=== PATIENT | male | born 1940 | race African-American/Black ===

== ENCOUNTER 2016-09-10 13:12 | Emergency (ER) | payer MEDICARE, BC, MEDICAID ==
[~2016-09-10] VITALS: Ht 185.4 cm; Wt 82.0 kg
[2016-09-10 16:17] LABS: CLARITY URINE TURBID (CLEAR); COLOR URINE YELLOW (YELLOW); GLUCOSE URINE NEGATIVE (NEGATIVE); KETONES URINE TRACE (NEGATIVE); LEUKOCYTE ESTERASE URINE 3+ (NEGATIVE); NITRITE URINE POSITIVE (NEGATIVE); OCCULT BLOOD URINE 2+ (NEGATIVE); PH URINE 7.5 (4.5-8.0); PROTEIN URINE 2+ (NEGATIVE); SPECIFIC GRAVITY URINE 1.016 (1.005-1.030)
[2016-09-10] MEDS ORDERED: CEFTRIAXONE SODIUM 1 G/VIAL IM SCH (19:45)
[2016-09-10] MEDS ORDERED: LIDOCAINE HCL 1% 20ML VIAL (Pyxis) INJ INFIL SCH (19:45)
[2016-09-10 20:25] VITALS: BP 105/60
== END 2016-09-10 20:50 | disposition home or self-care (01) ==
LOC: ER 13:42
DX: N39.0 Urinary tract infection, site not specified (principal); I11.0 Hypertensive heart disease with heart failure; I50.9 Heart failure, unspecified
CPT/HCPCS: 51702; 81001; 99284; J0696; J3490; A4315

== ENCOUNTER 2016-10-15 14:29 | Inpatient (IN) | payer MEDICARE, MEDICAID ==
[~2016-10-15] VITALS: Ht 185.4 cm; Wt 78.9 kg
[2016-10-15] MEDS ORDERED: KETOROLAC 60MG/2ML VIAL IM ONE (15:15)
[2016-10-15] MEDS ORDERED: MORPHINE SULFATE 4 MG/ML CPJ (NOT FOR IM USE) IV STA ×2 (17:00)
[2016-10-15] MEDS ORDERED: SODIUM CHLORIDE 0.9% 500 ML IV ONE (17:00)
[2016-10-15] MEDS ORDERED: DEXAMETHASONE 10 MG/ML VIAL IV ONE (17:00)
[2016-10-15] MEDS ORDERED: ONDANSETRON HCL 4MG/2ML VIAL IV STA ×2 (17:00)
[2016-10-15 17:27] LABS: BASOPHILS % 0.4 % (0.0-2.0); EOSINOPHILS % 0.3 % (0.0-5.0); HEMOGLOBIN. 12.2 g/dL (14.0-18.0); LYMPHOCYTES % 10.4 % (20.0-50.0); MEAN CORPUSCULAR HEMOGLOBIN 29.2 pg (28.0-32.0); MEAN PLATELET VOLUME 8.4 fl (7.4-10.4); MONOCYTES % 11.2 % (2.0-8.0); NEUTROPHILS % 77.7 % (40.0-76.0); PLATELET 162 x1000/uL (130-400); RED BLOOD CELL COUNT 4.19 mill/uL (4.7-6.1); RED CELL DISTRIBUTION WIDTH 14.7 % (11.6-14.6)
[2016-10-15 17:32] LABS: INR 1.1; PROTHROMBIN TIME 11.4 sec (9.4-11.6)
[2016-10-15 17:35] LABS: CARBON DIOXIDE 23 mEq/L (21-32); CHLORIDE 109 mEq/L (98-107)
[2016-10-15 17:42] LABS: TROPONIN I 0.15 ng/mL (0.00-0.04)
[2016-10-15 20:01] LABS: CLARITY URINE CLEAR (CLEAR); COLOR URINE DARK YELLOW (YELLOW); GLUCOSE URINE NEGATIVE (NEGATIVE); KETONES URINE TRACE (NEGATIVE); LEUKOCYTE ESTERASE URINE 2+ (NEGATIVE); NITRITE URINE POSITIVE (NEGATIVE); OCCULT BLOOD URINE 3+ (NEGATIVE); PROTEIN URINE 2+ (NEGATIVE); SPECIFIC GRAVITY URINE 1.024 (1.005-1.030)
[2016-10-15] MEDS ORDERED: CEFTRIAXONE 1 G PREMIX 50 ML IV ONE (20:15)
[2016-10-15 21:00] VITALS: BP 151/88
[2016-10-15 21:35] VITALS: BP 157/88
[2016-10-15] MEDS ORDERED: ONDANSETRON HCL 4MG/2ML VIAL IV PRN (23:00)
[2016-10-15] MEDS ORDERED: DEXTROSE 50% WATER 50ML SYRINGE IV PRN (23:00)
[2016-10-15] MEDS: MORPHINE SULFATE 4 MG/ML CPJ (NOT FOR IM USE) IV PRN (23:26)
[2016-10-16] VITALS: BP 147/75
[2016-10-16] MEDS ORDERED: LISI40TA4 PO (00:21)
[2016-10-16] MEDS ORDERED: TRAM50TA3 PO (00:21)
[2016-10-16] MEDS ORDERED: AMLO10TA80 PO (00:21)
[2016-10-16] MEDS ORDERED: METF500C MC (00:21)
[2016-10-16] MEDS ORDERED: GLYB5TAB7 PO (00:22)
[2016-10-16] MEDS ORDERED: METF-516 PO (00:25)
[2016-10-16] MEDS ORDERED: TRAMADOL 50MG TABLET PO PRN (00:30)
[2016-10-16] MEDS ORDERED: NON FORMULARY PATIENT HOME MED EA XX SCH (00:30)
[2016-10-16 04:00] VITALS: BP 127/68
[2016-10-16] MEDS: BLOOD SUGAR DIAGNOSTIC STRIP TEST SCH ×4 (06:34→21:18)
[2016-10-16 06:43] LABS: BASOPHILS % 0.4 % (0.0-2.0); EOSINOPHILS % 1.3 % (0.0-5.0); HEMATOCRIT. 33.3 % (42.0-52.0); HEMOGLOBIN. 11.3 g/dL (14.0-18.0); MEAN CORPUSCULAR HEMOGLOBIN 29.3 pg (28.0-32.0); MEAN CORPUSCULAR VOLUME 86.4 fL (80.0-94.0); MEAN PLATELET VOLUME 8.6 fl (7.4-10.4); NEUTROPHILS % 71.3 % (40.0-76.0); PLATELET 141 x1000/uL (130-400); RED BLOOD CELL COUNT 3.86 mill/uL (4.7-6.1); RED CELL DISTRIBUTION WIDTH 14.7 % (11.6-14.6)
[2016-10-16 07:07] LABS: CARBON DIOXIDE 25 mEq/L (21-32); CHLORIDE 112 mEq/L (98-107)
[2016-10-16 08:00] VITALS: BP 126/67
[2016-10-16] MEDS: GLYBURIDE 5MG TABLET PO SCH (08:23)
[2016-10-16] MEDS: AMLODIPINE 10MG TABLET PO SCH (08:24)
[2016-10-16] MEDS: LISINOPRIL 40MG TABLET PO SCH (08:24)
[2016-10-16] MEDS: METFORMIN HCL 500MG SR TABLET 24HR PO SCH (08:25)
[2016-10-16] MEDS: INSULIN LISPRO 100 UNITS/ML SUBCUT SCH ×4 (08:27→21:00)
[2016-10-16] MEDS: ENOXAPARIN 40MG/0.4ML SYR SUBCUT SCH (08:29)
[2016-10-16] MEDS: MORPHINE SULFATE 4 MG/ML CPJ (NOT FOR IM USE) IV PRN ×4 (08:29→22:36)
[2016-10-16 12:00] VITALS: BP 110/61
[2016-10-16] MEDS ORDERED: DOCUSATE SODIUM 100MG CAPSULE PO PRN (13:15)
[2016-10-16] MEDS ORDERED: ACETAMINOPHEN 325MG TABLET PO PRN (13:15)
[2016-10-16] MEDS ORDERED: IPRATROPIUM/ALBUTEROL 0.5-3(2.5)MG/3ML NEB INH PRN (13:15)
[2016-10-16] MEDS ORDERED: ONDANSETRON HCL 4MG/2ML VIAL IV PRN (13:15)
[2016-10-16] MEDS: OMEPRAZOLE 20MG CAPSULE EXTENDED RELEASE PO SCH (14:49)
[2016-10-16] MEDS: LEVOFLOXACIN 500MG PREMIX 100 ML IV SCH (14:49)
[2016-10-16 16:00] VITALS: BP 117/60
[2016-10-16 20:00] VITALS: BP 128/66
[2016-10-17] MEDS: BLOOD SUGAR DIAGNOSTIC STRIP TEST SCH ×4 (06:03→21:25)
[2016-10-17 07:20] LABS: *AMPHETAMINES SCREEN URINE NEGATIVE (NEGATIVE); *BARBITURATES SCREEN URINE NEGATIVE (NEGATIVE); *BENZODIAZEPINES SCREEN URINE NEGATIVE (NEGATIVE); *COCAINE SCREEN URINE NEGATIVE (NEGATIVE); CANNABINOID URINE SCREEN NEGATIVE (NEGATIVE); METHADONE URINE SCREEN NEGATIVE (NEGATIVE); OPIATES URINE SCREEN PRESUMTIVE POSITIVE (NEGATIVE); PHENCYCLIDINE URINE SCREEN NEGATIVE (NEGATIVE)
[2016-10-17 08:00] VITALS: BP 123/67
[2016-10-17] MEDS: METFORMIN HCL 500MG SR TABLET 24HR PO SCH (08:06)
[2016-10-17] MEDS: OMEPRAZOLE 20MG CAPSULE EXTENDED RELEASE PO SCH (08:06)
[2016-10-17] MEDS: GLYBURIDE 5MG TABLET PO SCH (08:09)
[2016-10-17] MEDS: MORPHINE SULFATE 4 MG/ML CPJ (NOT FOR IM USE) IV PRN (08:09)
[2016-10-17] MEDS: INSULIN LISPRO 100 UNITS/ML SUBCUT SCH ×3 (08:10→21:00)
[2016-10-17 09:35] LABS: BASOPHILS % 0.4 % (0.0-2.0); EOSINOPHILS % 0.5 % (0.0-5.0); HEMATOCRIT. 35.6 % (42.0-52.0); HEMOGLOBIN. 11.9 g/dL (14.0-18.0); LYMPHOCYTES % 12.6 % (20.0-50.0); MEAN CORPUSCULAR HEMOGLOBIN 29.3 pg (28.0-32.0); MEAN CORPUSCULAR VOLUME 87.2 fL (80.0-94.0); MONOCYTES % 12.6 % (2.0-8.0); NEUTROPHILS % 73.9 % (40.0-76.0); PLATELET 134 x1000/uL (130-400); RED BLOOD CELL COUNT 4.08 mill/uL (4.7-6.1); RED CELL DISTRIBUTION WIDTH 15.1 % (11.6-14.6)
[2016-10-17] MEDS: ENOXAPARIN 40MG/0.4ML SYR SUBCUT SCH (09:35)
[2016-10-17] MEDS: LISINOPRIL 40MG TABLET PO SCH (09:35)
[2016-10-17 09:49] LABS: CARBON DIOXIDE 22 mEq/L (21-32); CHLORIDE 112 mEq/L (98-107)
[2016-10-17] MEDS ORDERED: MAGNESIUM HYDROXIDE 400MG/5ML 30ML UDC PO NR (11:30)
[2016-10-17 12:00] VITALS: BP 131/71
[2016-10-17] MEDS: AMLODIPINE 10MG TABLET PO SCH (15:01)
[2016-10-17] MEDS: DOCUSATE SODIUM 100MG CAPSULE PO SCH ×2 (15:22→18:18)
[2016-10-17] MEDS: LEVOFLOXACIN 500MG PREMIX 100 ML IV SCH (15:23)
[2016-10-17 16:00] VITALS: BP 141/76
[2016-10-17] MEDS ORDERED: MAGNESIUM HYDROXIDE 400MG/5ML 30ML UDC PO PRN (19:00)
[2016-10-17 20:00] VITALS: BP 134/67
[2016-10-17] MEDS: CARVEDILOL 3.125 MG TABLET PO SCH (21:25)
[2016-10-17 23:16] LABS: T4 FREE 1.52 ng/dL (0.76-1.46)
[2016-10-18] VITALS: BP 138/79
[2016-10-18 04:00] VITALS: BP 124/63
[2016-10-18] MEDS: MORPHINE SULFATE 4 MG/ML CPJ (NOT FOR IM USE) IV PRN ×4 (04:58→20:58)
[2016-10-18 05:27] LABS: BASOPHILS % 0.3 % (0.0-2.0); EOSINOPHILS % 0.2 % (0.0-5.0); HEMATOCRIT. 35.6 % (42.0-52.0); HEMOGLOBIN. 12.1 g/dL (14.0-18.0); LYMPHOCYTES % 9.6 % (20.0-50.0); MEAN CORPUSCULAR HEMOGLOBIN 29.3 pg (28.0-32.0); MEAN CORPUSCULAR VOLUME 86.6 fL (80.0-94.0); MEAN PLATELET VOLUME 8.3 fl (7.4-10.4); MONOCYTES % 10.5 % (2.0-8.0); NEUTROPHILS % 79.4 % (40.0-76.0); PLATELET 179 x1000/uL (130-400); RED BLOOD CELL COUNT 4.11 mill/uL (4.7-6.1); RED CELL DISTRIBUTION WIDTH 14.7 % (11.6-14.6)
[2016-10-18 06:28] LABS: CHLORIDE 108 mEq/L (98-107)
[2016-10-18 06:32] LABS: CARBON DIOXIDE 23 mEq/L (21-32)
[2016-10-18] MEDS: BLOOD SUGAR DIAGNOSTIC STRIP TEST SCH ×4 (07:38→21:58)
[2016-10-18 08:00] VITALS: BP 121/59
[2016-10-18] MEDS: CALCITONIN,SALMON, 3.7 ML NASAL SPRAY ONENSTRL SCH (09:20)
[2016-10-18] MEDS: CALCIUM CARBONATE/VITAMIN D3 500MG TABLET PO SCH (09:20)
[2016-10-18] MEDS: INSULIN LISPRO 100 UNITS/ML SUBCUT SCH ×4 (09:20→21:35)
[2016-10-18] MEDS: ENOXAPARIN 40MG/0.4ML SYR SUBCUT SCH (09:21)
[2016-10-18] MEDS: DOCUSATE SODIUM 100MG CAPSULE PO SCH ×2 (09:21→18:37)
[2016-10-18] MEDS: GLYBURIDE 5MG TABLET PO SCH (09:21)
[2016-10-18] MEDS: CARVEDILOL 3.125 MG TABLET PO SCH ×2 (09:21→20:57)
[2016-10-18] MEDS: METFORMIN HCL 500MG SR TABLET 24HR PO SCH (09:21)
[2016-10-18] MEDS: LISINOPRIL 40MG TABLET PO SCH (09:22)
[2016-10-18] MEDS: AMLODIPINE 10MG TABLET PO SCH (09:22)
[2016-10-18] MEDS: FAMOTIDINE 20MG TABLET PO SCH ×2 (09:22→18:37)
[2016-10-18] MEDS: LIDOCAINE 5% PATCH TOP SCH (09:24)
[2016-10-18 12:00] VITALS: BP 116/51
[2016-10-18] MEDS: LEVOFLOXACIN 500MG PREMIX 100 ML IV SCH (15:11)
[2016-10-18 16:00] VITALS: BP 118/71
[2016-10-18 20:00] VITALS: BP 125/68
[2016-10-18] MEDS: INSULIN DETEMIR UD 100 UNITS/ML SYR SUBCUT SCH (21:34)
[2016-10-19] VITALS (8 sets, daily range): BP systolic 123–139; BP diastolic 66–90
[2016-10-19] MEDS: BLOOD SUGAR DIAGNOSTIC STRIP TEST SCH ×4 (07:24→20:29)
[2016-10-19 07:29] LABS: BASOPHILS % 0.3 % (0.0-2.0); EOSINOPHILS % 0.2 % (0.0-5.0); HEMATOCRIT. 33.8 % (42.0-52.0); HEMOGLOBIN. 11.6 g/dL (14.0-18.0); LYMPHOCYTES % 12.8 % (20.0-50.0); MEAN CORPUSCULAR HEMOGLOBIN 29.1 pg (28.0-32.0); MEAN CORPUSCULAR VOLUME 85.2 fL (80.0-94.0); MEAN PLATELET VOLUME 8.8 fl (7.4-10.4); NEUTROPHILS % 74.7 % (40.0-76.0); PLATELET 199 x1000/uL (130-400); RED BLOOD CELL COUNT 3.97 mill/uL (4.7-6.1); RED CELL DISTRIBUTION WIDTH 14.7 % (11.6-14.6)
[2016-10-19] MEDS: INSULIN LISPRO 100 UNITS/ML SUBCUT SCH ×4 (07:40→20:31)
[2016-10-19 08:07] LABS: CARBON DIOXIDE 24 mEq/L (21-32); CHLORIDE 107 mEq/L (98-107)
[2016-10-19] MEDS: GLYBURIDE 5MG TABLET PO SCH (08:10)
[2016-10-19] MEDS: METFORMIN HCL 500MG SR TABLET 24HR PO SCH (08:10)
[2016-10-19] MEDS: CARVEDILOL 3.125 MG TABLET PO SCH ×2 (09:00→20:32)
[2016-10-19] MEDS: METHIMAZOLE 5MG TABLET PO SCH (09:00)
[2016-10-19] MEDS: ENOXAPARIN 40MG/0.4ML SYR SUBCUT SCH (09:00)
[2016-10-19] MEDS: CALCITONIN,SALMON, 3.7 ML NASAL SPRAY ONENSTRL SCH (09:00)
[2016-10-19] MEDS: LIDOCAINE 5% PATCH TOP SCH (09:00)
[2016-10-19] MEDS: AMLODIPINE 10MG TABLET PO SCH (09:00)
[2016-10-19] MEDS: FAMOTIDINE 20MG TABLET PO SCH ×2 (09:00→16:09)
[2016-10-19] MEDS: LISINOPRIL 40MG TABLET PO SCH (09:00)
[2016-10-19] MEDS: CALCIUM CARBONATE/VITAMIN D3 500MG TABLET PO SCH (09:00)
[2016-10-19] MEDS: DOCUSATE SODIUM 100MG CAPSULE PO SCH ×2 (09:00→16:09)
[2016-10-19] MEDS: MORPHINE SULFATE 4 MG/ML CPJ (NOT FOR IM USE) IV PRN ×3 (10:31→20:30)
[2016-10-19] MEDS: LEVOFLOXACIN 500MG PREMIX 100 ML IV SCH (16:09)
[2016-10-19] MEDS: INSULIN DETEMIR UD 100 UNITS/ML SYR SUBCUT SCH (22:00)
[2016-10-20] VITALS: BP 132/7
[2016-10-20 04:00] VITALS: BP 131/69
[2016-10-20] MEDS: BLOOD SUGAR DIAGNOSTIC STRIP TEST SCH ×4 (07:05→21:16)
[2016-10-20 08:00] VITALS: BP 119/72
[2016-10-20] MEDS: INSULIN LISPRO 100 UNITS/ML SUBCUT SCH ×4 (08:10→21:18)
[2016-10-20] MEDS ORDERED: PROPOFOL 10MG/ML 100ML 100 ML IV ONE (08:45)
[2016-10-20] MEDS: LISINOPRIL 40MG TABLET PO SCH (09:00)
[2016-10-20] MEDS: AMLODIPINE 10MG TABLET PO SCH (09:00)
[2016-10-20] MEDS: CARVEDILOL 3.125 MG TABLET PO SCH ×2 (09:00→21:17)
[2016-10-20] MEDS ORDERED: HYDROMORPHONE HCL/PF 2MG/ML (OR) ONE (09:01)
[2016-10-20] MEDS ORDERED: LIDOCAINE HCL 1% 20ML VIAL (Pyxis) INJ ONE (09:07)
[2016-10-20] MEDS ORDERED: IOHEXOL-300 50 ML BOTTLE IV ONE (09:08)
[2016-10-20] MEDS ORDERED: SODIUM BICARBONATE 4% (2.4MEQ) 5ML VIAL IV ONE (09:08)
[2016-10-20] MEDS ORDERED: HYDROMORPHONE HCL/PF 2MG/ML CPJ IV PRN (09:45)
[2016-10-20] MEDS ORDERED: LABETALOL HCL 20MG/4ML CARPUJECT IV PRN (09:45)
[2016-10-20] MEDS ORDERED: ONDANSETRON HCL 4MG/2ML VIAL IV PRN (09:45)
[2016-10-20] MEDS ORDERED: MEPERIDINE HCL/PF 25MG/ML CPJ IV PRN (09:45)
[2016-10-20 12:00] VITALS: BP 124/55
[2016-10-20 13:13] LABS: FOLICLE STIMULATING HORMONE 13.6 mIU/mL (1.5-12.4); LUTEINIZING HORMONE 9.9 mIU/mL (1.7-8.6); THYROID PEROXIDASE ANTIBODY 19 IU/mL (0-34)
[2016-10-20] MEDS: CALCITONIN,SALMON, 3.7 ML NASAL SPRAY ONENSTRL SCH (14:34)
[2016-10-20] MEDS: METFORMIN HCL 500MG SR TABLET 24HR PO SCH (14:34)
[2016-10-20] MEDS: FAMOTIDINE 20MG TABLET PO SCH ×2 (14:34→16:25)
[2016-10-20] MEDS: BICALUTAMIDE 50 MG TABLET PO SCH (14:35)
[2016-10-20] MEDS: CALCIUM CARBONATE/VITAMIN D3 500MG TABLET PO SCH (14:35)
[2016-10-20] MEDS: LINAGLIPTIN 5MG TABLET PO SCH (14:35)
[2016-10-20] MEDS: GLYBURIDE 5MG TABLET PO SCH (14:35)
[2016-10-20] MEDS: DOCUSATE SODIUM 100MG CAPSULE PO SCH ×3 (14:35→16:26)
[2016-10-20] MEDS: METHIMAZOLE 5MG TABLET PO SCH (14:35)
[2016-10-20] MEDS: LIDOCAINE 5% PATCH TOP SCH (14:36)
[2016-10-20] MEDS: LEVOFLOXACIN 500MG PREMIX 100 ML IV SCH (15:00)
[2016-10-20 16:00] VITALS: BP 113/71
[2016-10-20 20:00] VITALS: BP 128/72
[2016-10-20] MEDS: MORPHINE SULFATE 4 MG/ML CPJ (NOT FOR IM USE) IV PRN (20:37)
[2016-10-20] MEDS: INSULIN DETEMIR UD 100 UNITS/ML SYR SUBCUT SCH (21:18)
[2016-10-21] VITALS (7 sets, daily range): BP systolic 94–133; BP diastolic 53–86
[2016-10-21] MEDS: BLOOD SUGAR DIAGNOSTIC STRIP TEST SCH ×4 (07:01→21:40)
[2016-10-21 07:18] LABS: A/G RATIO 0.9 (0.7-1.7); ALPHA-1-GLOBULIN 0.4 g/dL (0.0-0.4); ALPHA-2-GLOBULIN 1.1 g/dL (0.4-1.0); BETA GLOBULIN 1.1 g/dL (0.7-1.3); GAMMA GLOBULINS 0.8 g/dL (0.4-1.8); GLOBULIN TOTAL 3.3 g/dL (2.2-3.9); M-SPIKE Not Observed g/dL (Not Observed); TOTAL PROTEIN SERUM 6.3 g/dL (6.0-8.5)
[2016-10-21] MEDS: INSULIN LISPRO 100 UNITS/ML SUBCUT SCH ×4 (07:39→21:00)
[2016-10-21] MEDS: LISINOPRIL 40MG TABLET PO SCH (09:00)
[2016-10-21] MEDS: AMLODIPINE 10MG TABLET PO SCH (09:00)
[2016-10-21] MEDS: CARVEDILOL 3.125 MG TABLET PO SCH ×2 (09:00→21:39)
[2016-10-21] MEDS: METHIMAZOLE 5MG TABLET PO SCH (10:00)
[2016-10-21] MEDS: GLYBURIDE 5MG TABLET PO SCH (10:00)
[2016-10-21] MEDS: FAMOTIDINE 20MG TABLET PO SCH ×2 (10:00→17:00)
[2016-10-21] MEDS: CALCIUM CARBONATE/VITAMIN D3 500MG TABLET PO SCH (10:01)
[2016-10-21] MEDS: LINAGLIPTIN 5MG TABLET PO SCH (10:02)
[2016-10-21] MEDS: METFORMIN HCL 500MG SR TABLET 24HR PO SCH (10:02)
[2016-10-21] MEDS: BICALUTAMIDE 50 MG TABLET PO SCH (10:03)
[2016-10-21] MEDS: ENOXAPARIN 40MG/0.4ML SYR SUBCUT SCH (10:03)
[2016-10-21] MEDS: CALCITONIN,SALMON, 3.7 ML NASAL SPRAY ONENSTRL SCH (10:04)
[2016-10-21] MEDS: MORPHINE SULFATE 4 MG/ML CPJ (NOT FOR IM USE) IV PRN ×2 (10:09→21:11)
[2016-10-21] MEDS: LIDOCAINE 5% PATCH TOP SCH (13:18)
[2016-10-21] MEDS: LEVOFLOXACIN 500MG PREMIX 100 ML IV SCH (15:28)
[2016-10-21] MEDS: DOCUSATE SODIUM 100MG CAPSULE PO SCH (17:00)
[2016-10-21] MEDS: INSULIN DETEMIR UD 100 UNITS/ML SYR SUBCUT SCH (21:40)
[2016-10-22] VITALS (9 sets, daily range): BP systolic 99–146; BP diastolic 57–71
[2016-10-22] MEDS: TRAMADOL 50MG TABLET PO PRN (00:13)
[2016-10-22] MEDS: MORPHINE SULFATE 4 MG/ML CPJ (NOT FOR IM USE) IV PRN ×3 (02:09→13:12)
[2016-10-22] MEDS: BLOOD SUGAR DIAGNOSTIC STRIP TEST SCH ×4 (07:28→22:28)
[2016-10-22] MEDS: INSULIN LISPRO 100 UNITS/ML SUBCUT SCH ×4 (07:28→21:00)
[2016-10-22] MEDS: CALCITONIN,SALMON, 3.7 ML NASAL SPRAY ONENSTRL SCH (09:00)
[2016-10-22] MEDS: BICALUTAMIDE 50 MG TABLET PO SCH (10:11)
[2016-10-22] MEDS: AMLODIPINE 10MG TABLET PO SCH (10:12)
[2016-10-22] MEDS: DOCUSATE SODIUM 100MG CAPSULE PO SCH ×2 (10:12→17:52)
[2016-10-22] MEDS: CALCIUM CARBONATE/VITAMIN D3 500MG TABLET PO SCH (10:12)
[2016-10-22] MEDS: LINAGLIPTIN 5MG TABLET PO SCH (10:12)
[2016-10-22] MEDS: CARVEDILOL 3.125 MG TABLET PO SCH ×2 (10:12→21:00)
[2016-10-22] MEDS: FAMOTIDINE 20MG TABLET PO SCH ×2 (10:12→17:52)
[2016-10-22] MEDS: GLYBURIDE 5MG TABLET PO SCH (10:13)
[2016-10-22] MEDS: METFORMIN HCL 500MG SR TABLET 24HR PO SCH (10:13)
[2016-10-22] MEDS: LISINOPRIL 40MG TABLET PO SCH (10:13)
[2016-10-22] MEDS: METHIMAZOLE 5MG TABLET PO SCH (10:13)
[2016-10-22] MEDS: LIDOCAINE 5% PATCH TOP SCH (10:14)
[2016-10-22] MEDS: ENOXAPARIN 40MG/0.4ML SYR SUBCUT SCH (10:14)
[2016-10-22] MEDS: LEVOFLOXACIN 500MG PREMIX 100 ML IV SCH (16:01)
[2016-10-22] MEDS: FUROSEMIDE 20MG TABLET PO SCH (17:52)
[2016-10-22] MEDS: INSULIN DETEMIR UD 100 UNITS/ML SYR SUBCUT SCH (22:25)
[2016-10-23] VITALS: BP 100/58
[2016-10-23 04:00] VITALS: BP 111/55
[2016-10-23] MEDS: INSULIN LISPRO 100 UNITS/ML SUBCUT SCH ×4 (07:22→21:00)
[2016-10-23] MEDS: BLOOD SUGAR DIAGNOSTIC STRIP TEST SCH ×4 (07:22→22:58)
[2016-10-23 08:00] VITALS: BP 119/74
[2016-10-23] MEDS: CALCIUM CARBONATE/VITAMIN D3 500MG TABLET PO SCH (08:44)
[2016-10-23] MEDS: GLYBURIDE 5MG TABLET PO SCH (08:44)
[2016-10-23] MEDS: CARVEDILOL 3.125 MG TABLET PO SCH ×2 (08:44→21:00)
[2016-10-23] MEDS: AMLODIPINE 10MG TABLET PO SCH (08:44)
[2016-10-23] MEDS: LISINOPRIL 40MG TABLET PO SCH (08:44)
[2016-10-23] MEDS: METFORMIN HCL 500MG SR TABLET 24HR PO SCH (08:44)
[2016-10-23] MEDS: FUROSEMIDE 20MG TABLET PO SCH ×2 (08:44→17:45)
[2016-10-23] MEDS: LIDOCAINE 5% PATCH TOP SCH ×2 (08:45→08:54)
[2016-10-23] MEDS: LINAGLIPTIN 5MG TABLET PO SCH (08:45)
[2016-10-23] MEDS: METHIMAZOLE 5MG TABLET PO SCH (08:45)
[2016-10-23] MEDS: DOCUSATE SODIUM 100MG CAPSULE PO SCH ×2 (08:45→17:45)
[2016-10-23] MEDS: FAMOTIDINE 20MG TABLET PO SCH ×2 (08:45→17:45)
[2016-10-23] MEDS: BICALUTAMIDE 50 MG TABLET PO SCH (08:46)
[2016-10-23] MEDS: ENOXAPARIN 40MG/0.4ML SYR SUBCUT SCH (08:46)
[2016-10-23] MEDS: MORPHINE SULFATE 4 MG/ML CPJ (NOT FOR IM USE) IV PRN ×4 (08:46→22:58)
[2016-10-23] MEDS: CALCITONIN,SALMON, 3.7 ML NASAL SPRAY ONENSTRL SCH (08:47)
[2016-10-23 12:00] VITALS: BP 104/63
[2016-10-23] MEDS: LEVOFLOXACIN 500MG PREMIX 100 ML IV SCH (15:32)
[2016-10-23 16:00] VITALS: BP 111/63
[2016-10-23 20:13] VITALS: BP 106/54
[2016-10-23] MEDS: TRAMADOL 50MG TABLET PO PRN (20:42)
[2016-10-23] MEDS: INSULIN DETEMIR UD 100 UNITS/ML SYR SUBCUT SCH (22:49)
[2016-10-24] VITALS: BP 109/73
[2016-10-24] MEDS: TRAMADOL 50MG TABLET PO PRN ×2 (02:54→10:51)
[2016-10-24 03:00] VITALS: BP 114/68
[2016-10-24] MEDS: MORPHINE SULFATE 4 MG/ML CPJ (NOT FOR IM USE) IV PRN (06:43)
[2016-10-24] MEDS: BLOOD SUGAR DIAGNOSTIC STRIP TEST SCH ×4 (07:38→21:49)
[2016-10-24] MEDS: INSULIN LISPRO 100 UNITS/ML SUBCUT SCH ×4 (07:38→21:00)
[2016-10-24 08:00] VITALS: BP 105/66
[2016-10-24] MEDS: METFORMIN HCL 500MG SR TABLET 24HR PO SCH (08:31)
[2016-10-24] MEDS: CALCIUM CARBONATE/VITAMIN D3 500MG TABLET PO SCH (08:31)
[2016-10-24] MEDS: METHIMAZOLE 5MG TABLET PO SCH (08:31)
[2016-10-24] MEDS: DOCUSATE SODIUM 100MG CAPSULE PO SCH ×2 (08:31→18:45)
[2016-10-24] MEDS: GLYBURIDE 5MG TABLET PO SCH (08:31)
[2016-10-24] MEDS: LINAGLIPTIN 5MG TABLET PO SCH (08:31)
[2016-10-24] MEDS: FAMOTIDINE 20MG TABLET PO SCH ×2 (08:32→18:45)
[2016-10-24] MEDS: FUROSEMIDE 20MG TABLET PO SCH ×2 (08:32→18:46)
[2016-10-24] MEDS: CALCITONIN,SALMON, 3.7 ML NASAL SPRAY ONENSTRL SCH (08:32)
[2016-10-24] MEDS: BICALUTAMIDE 50 MG TABLET PO SCH (08:33)
[2016-10-24] MEDS: LIDOCAINE 5% PATCH TOP SCH (08:34)
[2016-10-24] MEDS: CARVEDILOL 3.125 MG TABLET PO SCH ×2 (08:35→21:49)
[2016-10-24] MEDS: ENOXAPARIN 40MG/0.4ML SYR SUBCUT SCH (08:35)
[2016-10-24] MEDS: AMLODIPINE 10MG TABLET PO SCH (08:35)
[2016-10-24] MEDS: LISINOPRIL 40MG TABLET PO SCH (08:36)
[2016-10-24 12:00] VITALS: BP 91/47
[2016-10-24 16:00] VITALS: BP 123/67
[2016-10-24 20:00] VITALS: BP 115/82
[2016-10-24] MEDS: INSULIN DETEMIR UD 100 UNITS/ML SYR SUBCUT SCH ×2 (21:49→22:47)
[2016-10-25] VITALS: BP 118/58
[2016-10-25 04:00] VITALS: BP 122/73
[2016-10-25] MEDS: BLOOD SUGAR DIAGNOSTIC STRIP TEST SCH ×2 (06:56→13:12)
[2016-10-25 08:00] VITALS: BP 113/70
[2016-10-25] MEDS: INSULIN LISPRO 100 UNITS/ML SUBCUT SCH ×2 (08:10→13:10)
[2016-10-25] MEDS: CARVEDILOL 3.125 MG TABLET PO SCH (09:00)
[2016-10-25] MEDS: FUROSEMIDE 20MG TABLET PO SCH (09:46)
[2016-10-25] MEDS: CALCITONIN,SALMON, 3.7 ML NASAL SPRAY ONENSTRL SCH (09:46)
[2016-10-25] MEDS: GLYBURIDE 5MG TABLET PO SCH (09:46)
[2016-10-25] MEDS: FAMOTIDINE 20MG TABLET PO SCH (09:47)
[2016-10-25] MEDS: METHIMAZOLE 5MG TABLET PO SCH (09:47)
[2016-10-25] MEDS: LINAGLIPTIN 5MG TABLET PO SCH (09:47)
[2016-10-25] MEDS: AMLODIPINE 10MG TABLET PO SCH (09:47)
[2016-10-25] MEDS: METFORMIN HCL 500MG SR TABLET 24HR PO SCH (09:47)
[2016-10-25] MEDS: DOCUSATE SODIUM 100MG CAPSULE PO SCH (09:48)
[2016-10-25] MEDS: BICALUTAMIDE 50 MG TABLET PO SCH (09:48)
[2016-10-25] MEDS: LISINOPRIL 40MG TABLET PO SCH (09:48)
[2016-10-25] MEDS: CALCIUM CARBONATE/VITAMIN D3 500MG TABLET PO SCH (09:48)
[2016-10-25] MEDS: ENOXAPARIN 40MG/0.4ML SYR SUBCUT SCH (09:49)
[2016-10-25] MEDS: LIDOCAINE 5% PATCH TOP SCH (09:49)
[2016-10-25 12:00] VITALS: BP 99/60
[2016-10-25] MEDS ORDERED: NA PHOS,M-B/NA PHOS,DI-BA ENEMA 118ML PR NR (14:45)
[2016-10-25] MEDS: TRAMADOL 50MG TABLET PO PRN (14:58)
[2016-10-25 16:00] VITALS: BP 119/68
[2016-10-25] MEDS ORDERED: LACTULOSE 20G/30ML UDC PO SCH (17:00)
[2016-10-25 18:10] VITALS: BP 120/70
[2016-10-26] MEDS ORDERED: NA PHOS,M-B/NA PHOS,DI-BA ENEMA 118ML PR PRN
[2016-10-26] MEDS ORDERED: BISACODYL 10MG SUPP PR SCH (09:00)
== END 2016-10-25 19:08 | DRG 516 ==
LOC: ER 14:36 → ENRESERV 18:41 → 7WST 19:59 → ER 20:31
PROVIDERS: ADMIT Family Medicine Adult Medicine; ATTEND Family Medicine Adult Medicine
PROC: 0QU03JZ Supplement Lumbar Vertebra with Synthetic Substitute, Percutaneous Approach (ICD-10-PCS; 2016-10-20)
PROC: 0QS03ZZ Reposition Lumbar Vertebra, Percutaneous Approach (ICD-10-PCS; principal; 2016-10-20 08:30)
DX: M48.56XA Collapsed vertebra, not elsewhere classified, lumbar region, initial encounter for fracture (principal); I42.0 Dilated cardiomyopathy; I11.0 Hypertensive heart disease with heart failure; I50.20 Unspecified systolic (congestive) heart failure; N39.0 Urinary tract infection, site not specified; E11.51 Type 2 diabetes mellitus with diabetic peripheral angiopathy without gangrene; W01.0XXA Fall on same level from slipping, tripping and stumbling without subsequent striking against object, initial encounter; E86.0 Dehydration; D64.9 Anemia, unspecified; R26.2 Difficulty in walking, not elsewhere classified; E87.6 Hypokalemia; B95.2 Enterococcus as the cause of diseases classified elsewhere; I25.10 Atherosclerotic heart disease of native coronary artery without angina pectoris; I44.7 Left bundle-branch block, unspecified; E05.90 Thyrotoxicosis, unspecified without thyrotoxic crisis or storm; J44.9 Chronic obstructive pulmonary disease, unspecified; Z79.4 Long term (current) use of insulin; Z79.899 Other long term (current) drug therapy; Z82.49 Family history of ischemic heart disease and other diseases of the circulatory system; I25.2 Old myocardial infarction; Z83.3 Family history of diabetes mellitus; Z86.711 Personal history of pulmonary embolism; Z86.718 Personal history of other venous thrombosis and embolism; Z86.73 Personal history of transient ischemic attack (TIA), and cerebral infarction without residual deficits; Z87.440 Personal history of urinary (tract) infections; Z87.891 Personal history of nicotine dependence; Z79.84 Long term (current) use of oral hypoglycemic drugs; Y93.89 Activity, other specified; Y92.89 Other specified places as the place of occurrence of the external cause; Y99.8 Other external cause status; Z88.6 Allergy status to analgesic agent
CPT/HCPCS: 22511; 36415; 71250; 72125; 72141; 72148; 74176; 80048; 80053; 80305; 81001; 82378; 82962; 83001; 83002; 83036; 83520; 83690; 83735; 84153; 84155; 84165; 84403; 84439; 84443; 84481; 84484; 85025; 85610; 86376; 87077; 87086; 87186; 93005; 93306; 96361; 96374; 96375; 97110; 97162; 97164; 97166; 97168; 97530; 97760; 99285; G0482; J1170; J1650; J1815; J1956; J2270; J2405; J2704; J3490; J7030; J7040; J7050; Q9967

== ENCOUNTER 2016-11-14 15:00 | Emergency (ER) | payer MEDICARE, MEDICAID ==
[~2016-11-14] VITALS: Ht 180.3 cm; Wt 77.0 kg
[~2016-11-14 15:00] MED LIST: GLYB5TAB7 PO; LISI40TA4 PO; METF-516 PO; TRAM50TA3 PO
[2016-11-14] MEDS ORDERED: CARV3.1242 PO (15:12)
[2016-11-14] MEDS ORDERED: METF500T4 PO (15:12)
[2016-11-14] MEDS ORDERED: AMLO2.5T45 PO (15:12)
[2016-11-14] MEDS ORDERED: LINA5TAB PO (15:12)
[2016-11-14] MEDS ORDERED: SODIUM CHLORIDE 0.9% 500 ML IV ONE (17:44)
[2016-11-14] MEDS ORDERED: HYDROCODONE/ACETAMINOPHEN 5/325MG TABLET PO ONE (17:45)
[2016-11-14 19:41] LABS: BASOPHILS % 0.6 % (0.0-2.0); HEMATOCRIT. 36.6 % (42.0-52.0); HEMOGLOBIN. 12.1 g/dL (14.0-18.0); LYMPHOCYTES % 17.1 % (20.0-50.0); MEAN CORPUSCULAR HEMOGLOBIN 28.8 pg (28.0-32.0); MEAN CORPUSCULAR VOLUME 87.2 fL (80.0-94.0); MEAN PLATELET VOLUME 8.7 fl (7.4-10.4); MONOCYTES % 8.2 % (2.0-8.0); NEUTROPHILS % 73.1 % (40.0-76.0); PLATELET 240 x1000/uL (130-400); RED CELL DISTRIBUTION WIDTH 15.4 % (11.6-14.6)
[2016-11-14 19:47] LABS: INR 1.1; PARTIAL THROMBOPLASTIN TIME 28.9 sec (23.4-31.0)
[2016-11-14 19:51] LABS: CARBON DIOXIDE 25 mEq/L (21-32); CHLORIDE 101 mEq/L (98-107)
[2016-11-14 19:56] LABS: TROPONIN I 0.08 ng/mL (0.00-0.04)
[2016-11-14 19:57] LABS: CREATINE KINASE MB FRACTION 2.4 ng/mL (0.5-3.6)
[2016-11-14 20:12] LABS: CLARITY URINE CLEAR (CLEAR); COLOR URINE YELLOW (YELLOW); GLUCOSE URINE NEGATIVE (NEGATIVE); KETONES URINE NEGATIVE (NEGATIVE); LEUKOCYTE ESTERASE URINE 1+ (NEGATIVE); NITRITE URINE NEGATIVE (NEGATIVE); OCCULT BLOOD URINE NEGATIVE (NEGATIVE); PROTEIN URINE TRACE (NEGATIVE); UROBILINOGEN URINE 0.2 E.U./dL (0.2-1.0)
[2016-11-14] MEDS ORDERED: CEFTRIAXONE 1 G PREMIX 50 ML IV ONE (20:30)
[2016-11-14 21:46] VITALS: BP 132/86
== END 2016-11-14 22:55 ==
LOC: ER 15:00 → EDBEDREQ 19:39 → CANBEDREQ 21:26 → ER 22:55
DX: N39.0 Urinary tract infection, site not specified (principal); M54.9 Dorsalgia, unspecified; I13.0 Hypertensive heart and chronic kidney disease with heart failure and stage 1 through stage 4 chronic kidney disease, or unspecified chronic kidney disease; N18.9 Chronic kidney disease, unspecified; I50.9 Heart failure, unspecified; E11.22 Type 2 diabetes mellitus with diabetic chronic kidney disease; N17.9 Acute kidney failure, unspecified; G89.29 Other chronic pain; D64.9 Anemia, unspecified; E03.9 Hypothyroidism, unspecified; E11.65 Type 2 diabetes mellitus with hyperglycemia; M85.80 Other specified disorders of bone density and structure, unspecified site; E11.9 Type 2 diabetes mellitus without complications; I44.7 Left bundle-branch block, unspecified; E78.00 Pure hypercholesterolemia, unspecified; Z88.6 Allergy status to analgesic agent; Z79.899 Other long term (current) drug therapy; Z86.718 Personal history of other venous thrombosis and embolism; Z79.84 Long term (current) use of oral hypoglycemic drugs
CPT/HCPCS: 36415; 70450; 71010; 72100; 72125; 80053; 81001; 82553; 83735; 83880; 84484; 85025; 85610; 85730; 87077; 87086; 87186; 93005; 96361; 96365; 99285; J0696; J7040

== ENCOUNTER 2016-11-25 13:17 | Inpatient (IN) | payer MEDICARE, MEDICAID ==
[~2016-11-25] VITALS: Ht 185.4 cm; Wt 71.7 kg
[~2016-11-25 13:17] MED LIST changes: +AMLO2.5T45 PO; +CARV3.1242 PO; +LINA5TAB PO; +METF500T4 PO
[2016-11-25 14:22] LABS: CARBON DIOXIDE 25 mEq/L (21-32); CHLORIDE 100 mEq/L (98-107); TROPONIN I 0.07 ng/mL (0.00-0.04)
[2016-11-25 14:26] LABS: BASOPHILS % 0.3 % (0.0-2.0); EOSINOPHILS % 1.3 % (0.0-5.0); HEMATOCRIT. 32.9 % (42.0-52.0); HEMOGLOBIN. 10.9 g/dL (14.0-18.0); LYMPHOCYTES % 7.4 % (20.0-50.0); MEAN CORPUSCULAR HEMOGLOBIN 28.5 pg (28.0-32.0); MEAN PLATELET VOLUME 8.4 fl (7.4-10.4); MONOCYTES % 8.1 % (2.0-8.0); NEUTROPHILS % 82.9 % (40.0-76.0); PLATELET 278 x1000/uL (130-400); RED BLOOD CELL COUNT 3.83 mill/uL (4.7-6.1); RED CELL DISTRIBUTION WIDTH 15.9 % (11.6-14.6)
[2016-11-25] MEDS ORDERED: SODIUM CHLORIDE 0.9% 500 ML IV ONE (14:39)
[2016-11-25 15:27] LABS: BG CARBOXYHEMOGLOBIN 0.4 % (0.5-1.5); BG DEOXYHEMOGLOBIN 11.6 % (0.0-5.0); BG FRACTION INSPIRED OXYGEN 28; BG HCO3 ACT 24.4 mmol/L (22.0-26.0); BG METHEMOGLOBIN 0.1 % (0.0-1.5); BG OXYGEN SATURATION 88.3 % (92.0-98.5); BG OXYHEMOGLOBIN 87.9 % (94.0-97.0); BG PCO2 38.7 mmHg (35.0-45.0); BG PH 7.417 (7.350-7.450); BG PO2 55.5 mmHg (75.0-100.0); BG SAMPLE SITE RIGHT RADIAL; BG TOTAL HEMOGLOBIN 11.4 g/dL (12.0-18.0); BG VENT MODE NASAL CANNULA
[2016-11-25] MEDS ORDERED: IPRATROPIUM/ALBUTEROL 0.5-3(2.5)MG/3ML NEB HHN PRN (16:00)
[2016-11-25] MEDS ORDERED: ONDANSETRON HCL 4MG/2ML VIAL IV PRN (17:30)
[2016-11-25] MEDS ORDERED: ACETAMINOPHEN 650MG SUPP PR PRN (17:30)
[2016-11-25] MEDS ORDERED: LORAZEPAM 2MG/ML CPJ IV PRN (17:30)
[2016-11-25] MEDS ORDERED: PIPERACILLIN/TAZ 3.375G PREMIX 50 ML IV SCH (20:00)
[2016-11-25 21:43] VITALS: BP 94/63
[2016-11-25 21:47] VITALS: BP 94/63
[2016-11-25] MEDS ORDERED: VANCOMYCIN 2,000 MG in DEXT 5% WATER 500 ML IV NR (22:00)
[2016-11-25] MEDS ORDERED: DEXTROSE 50% WATER 50ML SYRINGE IV PRN (22:15)
[2016-11-25] MEDS: INSULIN LISPRO 100 UNITS/ML SUBCUT SCH (22:15)
[2016-11-25] MEDS ORDERED: FURO40TA5 PO (22:16)
[2016-11-25] MEDS ORDERED: BICA50TA2 PO (22:16)
[2016-11-25] MEDS ORDERED: DOCU-138 PO (22:16)
[2016-11-25] MEDS ORDERED: OCD PO (22:16)
[2016-11-25] MEDS ORDERED: LOV40 SQ (22:20)
[2016-11-25] MEDS ORDERED: AMLO10TA80 PO (22:20)
[2016-11-25] MEDS ORDERED: TAP5 PO (22:20)
[2016-11-25] MEDS ORDERED: MULT-1146 PO (22:20)
[2016-11-25] MEDS ORDERED: FAMO20TA8 PO (22:23)
[2016-11-25] MEDS ORDERED: LIDO700A30 TP (22:23)
[2016-11-25] MEDS: BLOOD SUGAR DIAGNOSTIC STRIP TEST SCH (22:29)
[2016-11-25] MEDS: ENOXAPARIN 40MG/0.4ML SYR SUBCUT SCH (22:31)
[2016-11-25] MEDS: DEXT 5%/0.45% NACL 1000ML 1,000 ML IV SCH (22:31)
[2016-11-25] MEDS: BUDESONIDE 0.5MG/2ML NEB HHN SCH (22:35)
[2016-11-25] MEDS: IPRATROPIUM/ALBUTEROL 0.5-3(2.5)MG/3ML NEB HHN SCH (22:35)
[2016-11-25] MEDS: PIPERACILLIN/TAZ 3.375G PREMIX 50 ML IV SCH (23:03)
[2016-11-25] MEDS ORDERED: INFLUENZA VIRUS VACCINE 0.5ML SYR IM ONE (23:30)
[2016-11-26] VITALS: BP 101/63
[2016-11-26 00:28] LABS: *AMPHETAMINES SCREEN URINE NEGATIVE (NEGATIVE); *BARBITURATES SCREEN URINE NEGATIVE (NEGATIVE); *BENZODIAZEPINES SCREEN URINE NEGATIVE (NEGATIVE); *COCAINE SCREEN URINE NEGATIVE (NEGATIVE); CANNABINOID URINE SCREEN NEGATIVE (NEGATIVE); METHADONE URINE SCREEN NEGATIVE (NEGATIVE); OPIATES URINE SCREEN PRESUMTIVE POSITIVE (NEGATIVE); PHENCYCLIDINE URINE SCREEN NEGATIVE (NEGATIVE)
[2016-11-26] MEDS: IPRATROPIUM/ALBUTEROL 0.5-3(2.5)MG/3ML NEB HHN SCH ×4 (02:09→20:58)
[2016-11-26 04:00] VITALS: BP 94/47
[2016-11-26 06:33] LABS: CHLORIDE 105 mEq/L (98-107)
[2016-11-26 06:39] LABS: CARBON DIOXIDE 18 mEq/L (21-32)
[2016-11-26 07:15] LABS: BASOPHILS % 0.5 % (0.0-2.0); EOSINOPHILS % 1.1 % (0.0-5.0); HEMATOCRIT. 35.4 % (42.0-52.0); HEMOGLOBIN. 11.6 g/dL (14.0-18.0); LYMPHOCYTES % 17.3 % (20.0-50.0); MEAN CORPUSCULAR HEMOGLOBIN 29.5 pg (28.0-32.0); MEAN CORPUSCULAR VOLUME 90.4 fL (80.0-94.0); MEAN PLATELET VOLUME 8.4 fl (7.4-10.4); MONOCYTES % 12.5 % (2.0-8.0); NEUTROPHILS % 68.6 % (40.0-76.0); PLATELET 234 x1000/uL (130-400); RED BLOOD CELL COUNT 3.92 mill/uL (4.7-6.1)
[2016-11-26] MEDS: BLOOD SUGAR DIAGNOSTIC STRIP TEST SCH ×4 (07:19→20:31)
[2016-11-26] MEDS: INSULIN LISPRO 100 UNITS/ML SUBCUT SCH ×4 (07:20→20:31)
[2016-11-26 07:44] LABS: BG BASE EXCESS -1.1 mmol/L (-2.0-2.0); BG CARBOXYHEMOGLOBIN 0.2 % (0.5-1.5); BG METHEMOGLOBIN 0.3 % (0.0-1.5); BG OXYGEN SATURATION 89.9 % (92.0-98.5); BG OXYHEMOGLOBIN 89.5 % (94.0-97.0); BG PCO2 31.5 mmHg (35.0-45.0); BG PH 7.461 (7.350-7.450); BG PO2 54.9 mmHg (75.0-100.0); BG SAMPLE SITE RIGHT RADIAL; BG TOTAL HEMOGLOBIN 11.6 g/dL (12.0-18.0); BG VENT MODE NASAL CANNULA
[2016-11-26] MEDS: PIPERACILLIN/TAZ 3.375G PREMIX 50 ML IV SCH ×3 (07:51→23:29)
[2016-11-26 08:12] VITALS: BP 106/61
[2016-11-26] MEDS: BUDESONIDE 0.5MG/2ML NEB HHN SCH ×2 (08:24→20:58)
[2016-11-26] MEDS: DEXT 5%/0.45% NACL 1000ML 1,000 ML IV SCH (10:08)
[2016-11-26 11:58] VITALS: BP 106/53
[2016-11-26] MEDS: ACETAMINOPHEN 325MG TABLET PO PRN (15:55)
[2016-11-26 16:00] VITALS: BP 108/59
[2016-11-26] MEDS: VANCOMYCIN 1 G PREMIX 200 ML IV SCH (17:45)
[2016-11-26 20:00] VITALS: BP 97/53
[2016-11-26] MEDS: ENOXAPARIN 40MG/0.4ML SYR SUBCUT SCH (20:32)
[2016-11-27] VITALS: BP 95/56
[2016-11-27] MEDS: IPRATROPIUM/ALBUTEROL 0.5-3(2.5)MG/3ML NEB HHN SCH ×4 (03:16→20:25)
[2016-11-27 04:00] VITALS: BP 103/53
[2016-11-27] MEDS: BLOOD SUGAR DIAGNOSTIC STRIP TEST SCH ×4 (07:40→21:06)
[2016-11-27] MEDS: BUDESONIDE 0.5MG/2ML NEB HHN SCH ×2 (07:52→20:25)
[2016-11-27 08:00] VITALS: BP 117/54
[2016-11-27] MEDS: PIPERACILLIN/TAZ 3.375G PREMIX 50 ML IV SCH ×3 (08:00→16:12)
[2016-11-27] MEDS: INSULIN LISPRO 100 UNITS/ML SUBCUT SCH ×4 (08:10→21:00)
[2016-11-27] MEDS: ENOXAPARIN 80MG/0.8ML SYR SUBCUT SCH ×2 (10:40→21:00)
[2016-11-27] MEDS: ACETAMINOPHEN 325MG TABLET PO PRN ×3 (10:51→22:39)
[2016-11-27 11:16] LABS: INR 1.1; PROTHROMBIN TIME 11.4 sec (9.4-11.6)
[2016-11-27 11:22] LABS: CARBON DIOXIDE 23 mEq/L (21-32); CHLORIDE 105 mEq/L (98-107)
[2016-11-27 12:00] VITALS: BP 120/64
[2016-11-27] MEDS ORDERED: LIDOCAINE HCL 1% 20ML VIAL (Pyxis) INJ ONE (12:15)
[2016-11-27] MEDS ORDERED: SODIUM BICARBONATE 4% (2.4MEQ) 5ML VIAL IV ONE (12:15)
[2016-11-27] MEDS: VANCOMYCIN 1 G PREMIX 200 ML IV SCH (13:32)
[2016-11-27] MEDS ORDERED: IOHEXOL-350 100 ML BOTTLE ONE (14:13)
[2016-11-27 16:00] VITALS: BP 99/56
[2016-11-27 20:00] VITALS: BP 108/61
[2016-11-28] VITALS: BP 90/63
[2016-11-28] MEDS: PIPERACILLIN/TAZ 3.375G PREMIX 50 ML IV SCH ×3 (00:05→16:51)
[2016-11-28] MEDS: IPRATROPIUM/ALBUTEROL 0.5-3(2.5)MG/3ML NEB HHN SCH ×5 (00:52→22:26)
[2016-11-28 04:00] VITALS: BP 133/61
[2016-11-28 05:59] LABS: BASOPHILS % 0.6 % (0.0-2.0); EOSINOPHILS % 0.4 % (0.0-5.0); HEMATOCRIT. 30.4 % (42.0-52.0); HEMOGLOBIN. 10.3 g/dL (14.0-18.0); MEAN CORPUSCULAR HEMOGLOBIN 29.4 pg (28.0-32.0); MEAN CORPUSCULAR VOLUME 86.7 fL (80.0-94.0); MEAN PLATELET VOLUME 8.5 fl (7.4-10.4); PLATELET 265 x1000/uL (130-400); RED CELL DISTRIBUTION WIDTH 15.6 % (11.6-14.6)
[2016-11-28] MEDS: VANCOMYCIN 1 G PREMIX 200 ML IV SCH (06:49)
[2016-11-28] MEDS: BLOOD SUGAR DIAGNOSTIC STRIP TEST SCH ×4 (06:57→20:36)
[2016-11-28 08:00] VITALS: BP 120/72
[2016-11-28] MEDS: INSULIN LISPRO 100 UNITS/ML SUBCUT SCH ×4 (08:44→20:36)
[2016-11-28] MEDS: ENOXAPARIN 80MG/0.8ML SYR SUBCUT SCH ×2 (09:15→20:36)
[2016-11-28] MEDS: BUDESONIDE 0.5MG/2ML NEB HHN SCH ×2 (10:24→19:48)
[2016-11-28] MEDS: ACETAMINOPHEN 325MG TABLET PO PRN (10:26)
[2016-11-28 11:04] LABS: BG BASE EXCESS 1.9 mmol/L (-2.0-2.0); BG CARBOXYHEMOGLOBIN 0.3 % (0.5-1.5); BG DEOXYHEMOGLOBIN 5.8 % (0.0-5.0); BG FRACTION INSPIRED OXYGEN 32; BG HCO3 ACT 23.6 mmol/L (22.0-26.0); BG METHEMOGLOBIN 0.3 % (0.0-1.5); BG OXYGEN SATURATION 94.2 % (92.0-98.5); BG OXYHEMOGLOBIN 93.6 % (94.0-97.0); BG PCO2 27.8 mmHg (35.0-45.0); BG PH 7.547 (7.350-7.450); BG PO2 67.9 mmHg (75.0-100.0); BG SAMPLE SITE RIGHT BRACHIAL; BG TOTAL HEMOGLOBIN 10.6 g/dL (12.0-18.0); BG VENT MODE NASAL CANNULA
[2016-11-28 12:00] VITALS: BP 118/70
[2016-11-28 16:00] VITALS: BP_SYST 102; BP_SYST 126; BP_DIAS 53; BP_DIAS 78
[2016-11-28] MEDS: HYDROCODONE/ACETAMINOPHEN 5/325MG TABLET PO PRN ×2 (16:00→20:36)
[2016-11-28 20:00] VITALS: BP 92/49
[2016-11-29] VITALS: BP 91/49
[2016-11-29 04:00] VITALS: BP 116/66
[2016-11-29] MEDS: BLOOD SUGAR DIAGNOSTIC STRIP TEST SCH ×2 (05:55→12:08)
[2016-11-29 08:00] VITALS: BP 108/47
[2016-11-29] MEDS: IPRATROPIUM/ALBUTEROL 0.5-3(2.5)MG/3ML NEB HHN SCH ×2 (08:00→15:00)
[2016-11-29] MEDS: PIPERACILLIN/TAZ 3.375G PREMIX 50 ML IV SCH (08:00)
[2016-11-29] MEDS: BUDESONIDE 0.5MG/2ML NEB HHN SCH (08:00)
[2016-11-29] MEDS: INSULIN LISPRO 100 UNITS/ML SUBCUT SCH ×2 (08:57→12:48)
[2016-11-29] MEDS ORDERED: VANCOMYCIN 1 G PREMIX 200 ML IV SCH (09:00)
[2016-11-29] MEDS: ENOXAPARIN 80MG/0.8ML SYR SUBCUT SCH (10:42)
[2016-11-29 12:00] VITALS: BP 111/61
[2016-11-29] MEDS ORDERED: ENOXAPARIN 80MG/0.8ML SYR SUBCUT SCH ×2 (13:17→21:00)
[2016-11-29] MEDS: HYDROCODONE/ACETAMINOPHEN 5/325MG TABLET PO PRN (14:40)
[2016-11-29 14:42] VITALS: BP 111/61
[2016-11-29 15:50] VITALS: BP 109/60
== END 2016-11-29 15:57 | DRG 70 ==
LOC: ER 14:24 → 7WST 15:41 → EDBEDREQTM 15:43 → EDBEDREQ 15:43 → CANRESERV 18:53 → ENRESERV 18:53 → EDBEDREQSVC 19:10 → ENRESERV 19:53
PROVIDERS: ADMIT Hospitalist; ATTEND Hospitalist
PROC: 02HV33Z Insertion of Infusion Device into Superior Vena Cava, Percutaneous Approach (ICD-10-PCS; principal; 2016-11-27)
PROC: B5181ZA Fluoroscopy of Superior Vena Cava using Low Osmolar Contrast, Guidance (ICD-10-PCS; 2016-11-27)
PROC: B548ZZA Ultrasonography of Superior Vena Cava, Guidance (ICD-10-PCS; 2016-11-27)
DX: G93.41 Metabolic encephalopathy (principal); J69.0 Pneumonitis due to inhalation of food and vomit; J96.21 Acute and chronic respiratory failure with hypoxia; N17.9 Acute kidney failure, unspecified; I82.402 Acute embolism and thrombosis of unspecified deep veins of left lower extremity; I42.9 Cardiomyopathy, unspecified; I50.22 Chronic systolic (congestive) heart failure; E11.649 Type 2 diabetes mellitus with hypoglycemia without coma; I11.0 Hypertensive heart disease with heart failure; D64.9 Anemia, unspecified; E03.9 Hypothyroidism, unspecified; E78.00 Pure hypercholesterolemia, unspecified; E78.5 Hyperlipidemia, unspecified; I25.10 Atherosclerotic heart disease of native coronary artery without angina pectoris; J43.9 Emphysema, unspecified; Z79.4 Long term (current) use of insulin; Z86.73 Personal history of transient ischemic attack (TIA), and cerebral infarction without residual deficits; Z86.711 Personal history of pulmonary embolism; Z88.6 Allergy status to analgesic agent; Z79.84 Long term (current) use of oral hypoglycemic drugs; Z79.899 Other long term (current) drug therapy
CPT/HCPCS: 36415; 36569; 36600; 71010; 71275; 76705; 76937; 77001; 78582; 80048; 80053; 80202; 80305; 82375; 82805; 82962; 83880; 84484; 85025; 85610; 86850; 86900; 87086; 90686; 92610; 93005; 93971; 94640; 94664; 99285; A9558; C1725; C1893; J1650; J1815; J2543; J3370; J3490; J7030; J7060; J7620; J7626; Q9967